=== PATIENT | female | born 1960 | race Caucasian/White ===

== ENCOUNTER 2018-02-28 16:26 | Emergency (ER) | payer OTHER ==
[2018-02-28 16:48] VITALS: BP 106/68; PULSE 60; RESP 18; TEMP 98.5; O2SAT 100
[2018-02-28] MEDS ORDERED: Lidocaine 2% w Epi 1:100,000 Inj IJ ONE (17:01)
--- NOTE | 2018-02-28 17:26 | ED PDOC ---
HPI: Head Injury Time Seen by Provider: 02/28/18 16:52 Chief Complaint (Nursing): Trauma Chief Complaint (Provider): head injury History Per: Patient History/Exam Limitations: no limitations Injury Occurred (Timing): Hours Ago: (x2) Additional Complaint(s): 58 year old female with pmHx of HTN, arrives to ED for an evaluation of a head injury sustained around 1400 today. Patient admits to drinking alcohol at home then "blacked out for a few minutes". She noticed bleeding from the back of head once she regained consciousness on the floor and believes she may have hit her head on a coffee table. Patient went to Urgent Center afterwards and advised to go to ED for further evaluation. She denies any blurry vision, focal weakness, nausea or vomiting. Patient admits to being an alcoholic with intermittent suicidal ideations but has no current thoughts at present. PMD: none provided Past Medical History Reviewed: Historical Data, Nursing Documentation, Vital Signs Vital Signs: Last Vital Signs Temp 98.5 F 02/28/18 16:44 Pulse 60 02/28/18 16:44 Resp 18 02/28/18 16:44 BP 106/68 02/28/18 16:44 Pulse Ox 100 02/28/18 16:44 - Medical History PMH: HTN - Surgical History Other surgeries: b/l breast augmentation - Family History Family History: States: Hypertension - Social History Current smoker - smoking cessation education provided: No Alcohol: > 2 Drinks/Day Drugs: Denies - Allergies Allergies/Adverse Reactions: Allergies Allergy/AdvReac Type Severity Reaction Status Date / Time No Known Allergies Allergy Verified 02/28/18 16:44 Review of Systems ROS Statement: Except As Marked, All Systems Reviewed And Found Negative Eyes: Positive for: Vision Change (blurry) Gastrointestinal: Negative for: Nausea, Vomiting Neurological: Positive for: Other (LOC with head injury). Negative for: Weakness (focal) Psych: Positive for: Suicidal ideation (intermittently) Physical Exam - Reviewed Nursing Documentation Reviewed: Yes Vital Signs Reviewed: Yes - Physical Exam Appears: Positive for: Non-toxic, No Acute Distress Skin: Positive for: Warm, Dry Eye Exam: Positive for: EOMI ENT: Positive for: Pharynx Is (clear) Neck: Positive for: Painless ROM, Supple Cardiovascular/Chest: Positive for: Regular Rate, Rhythm. Negative for: Murmur Respiratory: Positive for: Normal Breath Sounds. Negative for: Respiratory Distress Gastrointestinal/Abdominal: Positive for: Soft. Negative for: Tenderness Back: Positive for: Normal Inspection. Negative for: Decreased ROM Extremity: Positive for: Normal ROM (upper/lower) Lymphatic: Negative for: Adenopathy Neurologic/Psych: Positive for: Alert, Oriented (x3), Mood/Affect (depressed mood/normal affect), Other (3cm laceration on left occipital scalp, ). Negative for: Motor/Sensory Deficits - ECG O2 Sat by Pulse Oximetry: 100 (RA) Pulse Ox Interpretation: Normal Medical Decision Making Medical Decision Making: Initial Impression: Head injury; Scalp laceration; Alcohol intoxication ( resolved) Differential Diagnosis: TBI, concussion Initial Plan: * CT head without contrast * Xylocaine 2% with Epi 5ml IJ Accession No. 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 HISTORY: head injury COMPARISON: None available. TECHNIQUE: Axial computed tomography images were obtained through the head/brain without intravenous contrast. Radiation dose: Total exam DLP = 778.47 mGy-cm. This CT exam was performed using one or more of the following dose reduction techniques: Automated exposure control, adjustment of the mA and/or kV according to patient size, and/or use of iterative reconstruction technique. FINDINGS: HEMORRHAGE: No intracranial hemorrhage. BRAIN: No mass effect or edema. Mild volume loss and mild white matter changes are noted. VENTRICLES: Unremarkable. No hydrocephalus. CALVARIUM: Unremarkable. PARANASAL SINUSES: Unremarkable as visualized. No significant inflammatory changes. MASTOID AIR CELLS: Unremarkable as visualized. No inflammatory changes. OTHER FINDINGS: None. IMPRESSION: No evidence of acute intracranial hemorrhage intracranial collection mass effect or midline shift. [id number] atrophy and mild white matter changes likely represent chronic microvascular ischemic disease. Evaluated by crisis and stable for dc DW pt findings and plan of care. Scribe Attestation: Documented by Gisele Parnell, acting as a scribe for Nyla Duff MD. Provider Scribe Attestation: All medical record entries made by the Scribe were at my direction and personally dictated by me. I have reviewed the chart and agree that the record accurately reflects my personal performance of the history, physical exam, medical decision making, and the department course for this patient. I have also personally directed, reviewed, and agree with the discharge instructions and disposition. Procedures - Laceration/Wound Repair Left Occipital Wound Length (cm): 3 Wound's Depth, Shape: superficial, linear Wound Explored: clean Irrigated w/ Saline (ccs): 250 Anesthesia: Lidocaine w/ Epi Volume Anesthetic (ccs): 3 Wound Repaired With: Lockhart (#5) Wound Complexity: Simple Progress: Tolerated procedure well Disposition - Clinical Impression Clinical Impression: Head injury, Alcohol intoxication, Depression Counseled Patient/Family Regarding: Studies Performed, Diagnosis, Need For Followup - Disposition Referrals: Alcoholics Anonymous [Outside] Disposition: Routine/Home Disposition Time: 18:28 Condition: IMPROVED Additional Instructions: APPLY BACITRACIN OR NEOSPORIN TWICE A DAY FOLLOW UP WITH YOUR DOCTOR OR CLINIC FOR WOUND CHECK IN 48 HOURS AND STAPLE REMOVAL IN 10-14 DAYS TAKE TYLENOL OR MOTRIN FOR PAIN RETURN TO ER IMMEDIATELY FOR: --INTRACTABLE PAIN OR VOMITING --THOUGHTS OF HURTING YOURSELF OR OTHERS --AUDITORY OR VISUAL HALLUCINATIONS --ANY OTHER WORRISOME SYMPTOMS PATO REYES, thank you for letting us take care of you today. Your provider was Nyla Duff MD and you were treated for scalp laceration and head injury. The emergency medical care you received today was directed at your acute symptoms. If you were prescribed any medication, please fill it and take as directed. It may take several days for your symptoms to resolve. Return to the Emergency Department if your symptoms worsen, do not improve, or if you have any other problems. Please contact your doctor or call one of the physicians/clinics you have been referred to that are listed on the Patient Visit Information form that is included in your discharge packet. Bring any paperwork you were given at discharge with you along with any medications you are taking to your follow up visit. Our treatment cannot replace ongoing medical care by a primary care provider outside of the emergency department. Thank you for allowing the [facility] team to be part of your care today. Instructions: Concussion, Adult (DC), Closed Head Injury, Alcohol Abuse and Alcoholism (DC), Tips for How to Help Your Mood
--- NOTE | 2018-02-28 17:59 | CT ---
Date of service: 02/28/2018 PROCEDURE: CT HEAD WITHOUT CONTRAST. HISTORY: head injury COMPARISON: None available. TECHNIQUE: Axial computed tomography images were obtained through the head/brain without intravenous contrast. Radiation dose: Total exam DLP = 778.47 mGy-cm. This CT exam was performed using one or more of the following dose reduction techniques: Automated exposure control, adjustment of the mA and/or kV according to patient size, and/or use of iterative reconstruction technique. FINDINGS: HEMORRHAGE: No intracranial hemorrhage. BRAIN: No mass effect or edema. Mild volume loss and mild white matter changes are noted. VENTRICLES: Unremarkable. No hydrocephalus. CALVARIUM: Unremarkable. PARANASAL SINUSES: Unremarkable as visualized. No significant inflammatory changes. MASTOID AIR CELLS: Unremarkable as visualized. No inflammatory changes. OTHER FINDINGS: None. IMPRESSION: No evidence of acute intracranial hemorrhage intracranial collection mass effect or midline shift. [id number] atrophy and mild white matter changes likely represent chronic microvascular ischemic disease.
[2018-02-28] MEDS ORDERED: Hydrogen Peroxide 3% Soln (480ml) TP ONE (19:33)
== END 2018-02-28 20:06 | disposition home or self-care (01) ==
LOC: H.ER 16:26
DX: S01.01XA Laceration without foreign body of scalp, initial encounter (principal); F10.129 Alcohol abuse with intoxication, unspecified; F32.9 Major depressive disorder, single episode, unspecified; I10 Essential (primary) hypertension